=== PATIENT | male | born 1980 | race Caucasian/White ===

== ENCOUNTER 2019-01-09 14:17 | Emergency (ER) | payer OTHER ==
[~2019-01-09] VITALS: Ht 180.3 cm; Wt 84.1 kg
[2019-01-09 15:11] LABS: EOS # 0.2 (0.04-0.40); EOS % 2.5 % (0.0-4.0); HEMATOCRIT 40.3 % (42.0-52.0); HEMOGLOBIN 13.3 g/dL (13.5-18.0); LYMPH# 1.4 (1.50-4.00); MEAN CELL VOLUME 91 fl (78-100); MEAN CORPUSCULAR HEMOGLOBIN 30 pg (27-31); MEAN CORPUSCULAR HGB CONC 33 g/dL (33-37); MEAN PLATELET VOLUME 10.5 fl (7.4-10.4); MONO # 0.4 (0.20-0.80); NEU # 4.3 (1.40-6.50); PLATELET COUNT 189 K/mm3 (130-400); RED BLOOD COUNT 4.41 M/mm3 (4.20-5.60); RED CELL DISTRIBUTION WIDTH 12.4 % (11.5-14.5); WHITE BLOOD COUNT 6.3 K/mm3 (4.8-10.8)
[2019-01-09 15:19] LABS: POTASSIUM 3.9 mmol/L (3.5-5.1)
[2019-01-09 15:20] LABS: CALCIUM 10.3 mg/dL (8.3-10.5)
[2019-01-09 16:07] LABS: URINE APPEARANCE CLEAR; URINE BILIRUBIN NEGATIVE (NEGATIVE); URINE BLOOD 50 ery/uL (NEGATIVE); URINE COLOR YELLOW; URINE GLUCOSE NEGATIVE (NEGATIVE); URINE KETONE 1+ (NEGATIVE); URINE LEUKOCYTE ESTERASE NEGATIVE (NEGATIVE); URINE MUCUS PRESENT (NOT PRESENT); URINE NITRATE NEGATIVE (NEGATIVE); URINE PROTEIN(semi-quant) TRACE mg/dL (NEGATIVE); URINE UROBILINOGEN NORMAL (NORMAL)
[2019-01-09] MEDS ORDERED: FLOMAX0.4 MG PO (19:27)
[2019-01-09] MEDS ORDERED: PERCOCET 325 MG1 TA2 PO (19:27)
[2019-01-09] MEDS ORDERED: ZOFRAN ODT4 MG PO (19:28)
[2019-01-09] MEDS ORDERED: SEPTRA DS 8001 TAB PO (19:28)
[2019-01-09 19:53] VITALS: BP 109/72
== END 2019-01-09 19:53 | disposition home or self-care (01) ==
LOC: ED 14:17
PROVIDERS: Family Medicine
DX: N20.1 Calculus of ureter (principal)
CPT/HCPCS: J1885; J3010; J7030; Q9967

== ENCOUNTER → 2020-02-07 | Outpatient (CLI) | payer OTHER ==
[~2020-02-07] MED LIST: FLOMAX0.4 MG PO; PERCOCET 325 MG1 TA2 PO; SEPTRA DS 8001 TAB PO; ZOFRAN ODT4 MG PO
[2020-02-07 08:48] LABS: EOS # 0.1 (0.04-0.40); EOS % 2.8 % (0.0-4.0); HEMATOCRIT 42.7 % (42.0-52.0); HEMOGLOBIN 13.8 g/dL (13.5-18.0); LYMPH# 1.2 (1.50-4.00); MEAN CELL VOLUME 92 fl (78-100); MEAN CORPUSCULAR HEMOGLOBIN 30 pg (27-31); MEAN CORPUSCULAR HGB CONC 32 g/dL (33-37); MEAN PLATELET VOLUME 10.3 fl (7.4-10.4); MONO # 0.3 (0.20-0.80); NEU # 2.9 (1.40-6.50); PLATELET COUNT 195 K/mm3 (130-400); RED BLOOD COUNT 4.64 M/mm3 (4.20-5.60); RED CELL DISTRIBUTION WIDTH 12.5 % (11.5-14.5); WHITE BLOOD COUNT 4.6 K/mm3 (4.8-10.8)
[2020-02-07 08:59] LABS: POTASSIUM 3.9 mmol/L (3.5-5.1); SODIUM 142 mmol/L (136-145)
[2020-02-07 09:00] LABS: ALBUMIN 4.6 g/dL (3.5-5.0)
[2020-02-07 09:01] LABS: CALCIUM 9.2 mg/dL (8.3-10.5)
[2020-02-07 09:02] LABS: GLUCOSE 89 mg/dL (75-110); TOTAL PROTEIN 7.5 g/dL (6.4-8.3)
[2020-02-07 09:03] LABS: CARBON DIOXIDE 24 mmol/L (22-29)
[2020-02-07 09:04] LABS: TOTAL BILIRUBIN 0.7 mg/dL (0.2-1.2)
[2020-02-07 09:07] LABS: AST-SGOT 15 U/L (5-34)
[2020-02-07 09:09] LABS: ALT/SGPT 15 U/L (0-55)
[2020-02-07 09:21] LABS: TROPONIN-I < 0.03 ng/mL (<0.030)
== END ==
LOC: LAB 08:22
PROVIDERS: Physician Assistant
DX: Z13.220 Encounter for screening for lipoid disorders (principal); R63.4 Abnormal weight loss; R07.89 Other chest pain; Z82.49 Family history of ischemic heart disease and other diseases of the circulatory system

== ENCOUNTER → 2020-02-15 | Outpatient (CLI) | payer OTHER ==
[2020-02-16 10:48] LABS: ANA SCREEN with REFLEX Negative (Negative)
== END ==
LOC: LAB 12:01
PROVIDERS: Physician Assistant
DX: Z00.00 Encounter for general adult medical examination without abnormal findings (principal); Z12.5 Encounter for screening for malignant neoplasm of prostate; K90.9 Intestinal malabsorption, unspecified; M79.18 Myalgia, other site; R63.0 Anorexia; R07.9 Chest pain, unspecified

== ENCOUNTER → 2020-02-16 | Outpatient (CLI) | payer OTHER | LOC: RAD 12:52 | DX: M25.562 Pain in left knee (principal); M79.605 Pain in left leg ==

== ENCOUNTER → 2020-04-13 | Outpatient (CLI) | payer OTHER | LOC: LAB 10:17 | DX: U07.1 COVID-19 (principal) ==

== ENCOUNTER → 2020-12-03 | Day surgery (SDC) | payer OTHER | LOC: MSO 07:15 | DX: K92.1 Melena (principal); R19.7 Diarrhea, unspecified; R15.9 Full incontinence of feces; R19.8 Other specified symptoms and signs involving the digestive system and abdomen | CPT/HCPCS: 00811; J2704; J3010; J7120 ==